=== PATIENT | female | born 1950 | race African-American/Black ===

== ENCOUNTER 2021-10-28 17:22 | Emergency (ER) | payer MEDICARE ==
[~2021-10-28] VITALS: Ht 172.7 cm; Wt 72.8 kg
[~2021-10-28 17:22] MED LIST: AMLO-187 PO; HYDR12.575 PO; LISI1TAB39 PO; METH5TAB30 PO; PROP80CA3 PO
[2021-10-28 17:37] VITALS: BP 208/97
[2021-10-28] MEDS ORDERED: IBUPROFEN 200 MG TABLET. PO ONE (18:15)
--- NOTE | 2021-10-28 19:07 | RAD ---
Exam: Right ankle 3 views INDICATION: Fall and right ankle pain TECHNIQUE: Frontal, lateral and oblique views the right ankle Comparisons: None FINDINGS: Bone mineralization is normal. No acute or healed fractures. Soft tissues are unremarkable. Joint spa osvaldo are well-maintained. IMPRESSION: No acute osseous abnormality Electronically signed by: David Mcclendon MD (10/28/2021 7:04 PM) A[facility]
--- NOTE | 2021-10-28 19:24 | PHYS DOC ---
Past Medical History Past Medical History: Hypertension Past Surgical History: Appendectomy Smoking Status: Former Smoker Alcohol Use: Occasionally Drug Use: None General Adult EDM: Chief Complaint: MECHANICAL FALL HPI: HPI: Patient is a 71-year-old female that presents today with right ankle pain. Patient states she was walking down the steps and tripped over a pet that her daughter house, and she continues to have right heel and ankle pain. Patient states she is unable to bear weight due to pain in the area, she has not iced or elevated or taking any [id number] ibuprofen or Tylenol for the pain. Review of Systems: Review of Systems: Constitutional: Denies fever or chills. [] Eyes: Denies change in visual acuity. [] HENT: Denies nasal congestion or sore throat. [] Respiratory: Denies cough or shortness of breath. [] Cardiovascular: Denies chest pain or edema. [] GI: Denies abdominal pain, nausea, vomiting, bloody stools or diarrhea. [] : Denies dysuria. [] Musculoskeletal: right ankle pain Integument: Denies rash. [] Neurologic: Denies headache, focal weakness or sensory changes. [] Endocrine: Denies polyuria or polydipsia. [] Lymphatic: Denies swollen glands. [] Psychiatric: Denies depression or anxiety. [] Heart Score: C/O Chest Pain: No Risk Factors: Risk Factors: DM, Current or recent (<one month) smoker, HTN, HLP, family history of CAD, obesity. Risk Scores: Score 0 - 3: 2.5% MACE over next 6 weeks - Discharge Home Score 4 - 6: 20.3% MACE over next 6 weeks - Admit for Clinical Observation Score 7 - 10: 72.7% MACE over next 6 weeks - Early Invasive Strategies Current Medications: Current Medications Medications (Trade) Dose Ordered Sig/Seng Start Time Stop Time Status Last Admin Dose Admin Ibuprofen (Motrin) 600 mg 1X ONCE 10/28/21 18:15 10/28/21 18:16 DC 10/28/21 18:15 600 MG Allergies: Allergies: Allergies Coded Allergies Type Severity Reaction Last Updated Verified No Known Drug Allergies 08/19/17 No Physical Exam: PE: Constitutional: Well developed, well nourished, no acute distress, non-toxic appearance. [] HENT: Normocephalic, atraumatic, bilateral external ears normal, oropharynx moist, no oral exudates, nose normal. [] Eyes: PERRLA, EOMI, conjunctiva normal, no discharge. [] Neck: Normal range of motion, no tenderness, supple, no stridor. [] Cardiovascular:Heart rate regular rhythm, no murmur [] Lungs & Thorax: Bilateral breath sounds clear to auscultation [] Abdomen: Bowel sounds normal, soft, no tenderness, no masses, no pulsatile masses. [] Skin: Warm, dry, no erythema, no rash. [] Back: No tenderness, no CVA tenderness. [] Extremities: Right ankle tenderness with palpation on the lateral aspect and over the heel, swelling noted over the lateral aspect of the ankle, sensory is intact distal to the injury dorsalis pedis pulse is 2+ with cap refill less than 2 seconds Neurologic: Alert and oriented X 3, normal motor function, normal sensory function, no focal deficits noted. [] Psychologic: Affect normal, judgement normal, mood normal. [] Current Patient Data: Vital Signs: Vital Signs Date Time Temp Pulse Resp B/P (MAP) Pulse Ox O2 Delivery O2 Flow Rate FiO2 10/28/21 17:37 99.3 71 18 208/97 (134) 98 Room Air 99.3 EKG: EKG: [] Radiology/Procedures: Radiology/Procedures: REASON: fell and right ankle pain PROCEDURE: ANKLE RIGHT 3V Exam: Right ankle 3 views INDICATION: Fall and right ankle pain TECHNIQUE: Frontal, lateral and oblique views the right ankle Comparisons: None FINDINGS: Bone mineralization is normal. No acute or healed fractures. Soft tissues are unremarkable. Joint spaces are well-maintained. IMPRESSION: No acute osseous abnormality Electronically signed by: David Mcclendon MD (10/28/2021 7:04 PM) [facility] Course & Med Decision Making: Course & Med Decision Making Pertinent Labs and Imaging studies reviewed. (See chart for details) 1914 reviewed radiological results with patient did inform her there was no acute findings on the plain films, but that does not exclude having a tendon or ligament or cartilage injury. Patient will be placed in a walking boot, she states she has a walker and a cane at home that she can use with ambulation assistance, she is also encouraged to ice 20 minutes on 4-5 times daily, take Tylenol and/or ibuprofen as needed for pain and to follow-up with her primary care physician Dr. Suarez at [facility] for further evaluation of this ankle injury. Patient verbalized understanding of this and agreeable with plan of care. Dragon Disclaimer: Alistair Disclaimer: This electronic medical record was generated, in whole or in part, using a voice recognition dictation system. Departure Departure Impression: Primary Impression: Ankle pain, right Qualified Codes: M25.571 - Pain in right ankle and joints of right foot Disposition: HOME / SELF CARE / HOMELESS Condition: STABLE Referrals: LILI SINGER MD Patient Instructions: Ankle Pain, RICE - Routine Care for Injuries Additional Instructions: Use cane or walker as needed to assist with ambulation Wear walking boot while up and about Ice 20 minutes on 4-5 times daily Tylenol and/or ibuprofen as needed for pain Follow-up with your primary care physician Dr. Suarez at [facility] or with Dr. Singer who is the orthopedic doctor pipeline superintendent division for further evaluation of your ankle injury HUMERA JOHN VALVE TECHNICIAN Oct 28, 2021 19:24
== END 2021-10-28 20:00 | disposition home or self-care (01) ==
LOC: ER 17:22
DX: M25.571 Pain in right ankle and joints of right foot (principal); R22.41 Localized swelling, mass and lump, right lower limb; I10 Essential (primary) hypertension
CPT/HCPCS: 73610; 99283